=== PATIENT | male | born 2000 | race American Indian/Alaskan Native ===

== ENCOUNTER 2020-02-22 13:05 | Emergency (ER) | payer MEDICAID, OTHER ==
[2020-02-22 13:12] VITALS: BP 128/71
--- NOTE | 2020-02-22 14:05 | Emergency Department Report ---
ED Male HPI - General Chief complaint: Urogenital-Male Stated complaint: LEFT SWOLLEN TESTICLE Time Seen by Provider: 02/22/20 13:19 Source: patient Mode of arrival: Ambulatory Limitations: No Limitations - History of Present Illness Initial comments: 20-year-old [place] male with emergency department complaining of atraumatic left testicular swelling with a vague dull ache off and on which is been going on since waking up this morning. Reports no fevers chills or sweats reports no penile discharge. No dysuria no hematuria. MD Complaint: testicle swelling -: Gradual Location: left testicle Radiation: none Severity: mild Consistency: constant Improves with: none Worsens with: none new medication swelling. denies: rash, urinary retention, blood in urine, dysuria, fever, nausea/vomiting, incontinence - Related Data Allergies Allergy/AdvReac Type Severity Reaction Status Date / Time No Known Allergies Allergy Unverified 02/22/20 13:09 ED Review of Systems ROS: Stated complaint: LEFT SWOLLEN TESTICLE Other details as noted in HPI Comment: All other systems reviewed and negative ED Past Medical Hx - Past Medical History Previous Medical History?: No - Surgical History Past Surgical History?: Yes Additional Surgical History: orbital fx. surgery - Social History Smoking Status: Never Smoker Substance Use Type: None ED Physical Exam - General Limitations: No Limitations General appearance: alert, in no apparent distress - Head Head exam: Present: atraumatic, normocephalic - Eye Eye exam: Present: normal appearance - ENT ENT exam: Present: mucous membranes moist - Neck Neck exam: Present: normal inspection - Respiratory Respiratory exam: Present: normal lung sounds bilaterally. Absent: respiratory distress - Cardiovascular Cardiovascular Exam: Present: regular rate, normal rhythm. Absent: systolic murmur, diastolic murmur, rubs, gallop - GI/Abdominal GI/Abdominal exam: Present: soft, normal bowel sounds - Rectal Rectal exam: Present: deferred - exam: Present: testicular tenderness (Tenderness along the epididymis of the left testicle.), circumcision. Absent: urethral discharge, vertical testicular lie External exam: Present: normal external exam - Extremities Exam Extremities exam: Present: normal inspection - Back Exam Back exam: Present: normal inspection - Neurological Exam Neurological exam: Present: alert, oriented X3 - Psychiatric Psychiatric exam: Present: normal affect, normal mood - Skin Skin exam: Present: warm, dry, intact, normal color. Absent: rash ED Course Vital Signs 02/22/20 02/22/20 02/22/20 13:10 14:43 15:53 Temperature 98 F Pulse Rate 61 80 Respiratory 18 18 18 Rate Blood Pressure 128/71 O2 Sat by Pulse 100 99 100 Oximetry ED Medical Decision Making - Radiology Data Radiology results: report reviewed [facility] [address] [place] [address] Ultrasound Report Signed Patient: EDER FOUNTAIN MR#: [id number] : 2000 Acct:[id number] Age/Sex: 20 / M ADM Date: 02/22/20 Loc: ED Attending Dr: Ordering Physician: YADI MEYERS Date of Service: 02/22/20 Procedure(s): US testicular doppler comp Accession Number(s): [id number] cc: YADI MEYERS EXAMINATION: Testicular/scrotal ultrasound CLINICAL INFORMATION: Left testicular pain and swelling. COMPARISON: None. FINDINGS: Both testicles are normal in size and echogenicity. The right testicle measures 4.6 x 1.7 x 2.6 cm. The left testicle measures 3.6 x 1.8 x 2.7 cm. Symmetric Doppler flow is demonstrated to both testicles. There is a 5 mm cyst within the region of the left epididymis, likely representing an incidental finding. No hydrocele is identified. IMPRESSION: 1. No sonographic abnormality of either testicle. Signer Name: Taya Lal MD Signed: 02/22/2020 3:06 PM Workstation Name: [id number] Transcribed By: EB Dictated By: Taya Lal MD Electronically Authenticated By: Taya Lal MD Signed Date/Time: 02/22/20 1506 DD/ 1503 TD/TT: Critical care attestation.: If time is entered above; I have spent that time in minutes in the direct care of this critically ill patient, excluding procedure time. ED Disposition Clinical Impression: Epididymal cyst Disposition: DC-01 TO HOME OR SELFCARE Is pt being admited?: No Does the pt Need Aspirin: No Condition: Stable Instructions: Testicular Self-examination (ED) Additional Instructions: Take [id number] Tylenol or Motrin as needed for pain if issues arise. Return to emergency department should you develop should you develop fever, penile discharge, change in color to the testicle. Change and elevation to either of your testicles, severe pain or any other symptoms suggesting that your symptoms are worsening Referrals: [facility] [Provider Group] - 3-5 Days
[2020-02-22 14:25] LABS: Bilirubin,Urine NEG (Negative); Blood,Urine NEG (Negative); Color,Urine Yellow (Yellow); Mucus,Urine 3+ /HPF; Protein,Urine <15 mg/dL mg/dL (Negative); Urobilinogen,Urine < 2.0 mg/dL (<2.0)
--- NOTE | 2020-02-22 15:10 | Ultrasound Report ---
EXAMINATION: Testicular/scrotal ultrasound CLINICAL INFORMATION: Left testicular pain and swelling. COMPARISON: None. FINDINGS: Both testicles are normal in size and echogenicity. The right testicle measures 4.6 x 1.7 x 2.6 cm. T he left testicle measures 3.6 x 1.8 x 2.7 cm. Symmetric Doppler flow is demonstrated to both testicle s. There is a 5 mm cyst within the region of the left epididymis, likely representing an incidental find ing. No hydrocele is identified. IMPRESSION: 1. No sonographic abnormality of either testicle. Signer Name: Taya Lal MD Signed: 02/22/2020 3:06 PM Workstation Name: [id number]
== END 2020-02-22 15:53 | disposition home or self-care (01) ==
LOC: ED 13:05
DX: N50.3 Cyst of epididymis (principal)
CPT/HCPCS: 81001; 93975

== ENCOUNTER 2020-07-25 03:57 | Emergency (ER) | payer OTHER ==
[2020-07-25 05:00] LABS: Alanine Aminotransferase 28 units/L (7-56); Albumin 4.9 g/dL (3.9-5); BUN/Creatinine Ratio 7; Blood Urea Nitrogen 8 mg/dL (9-20); Calcium 9.9 mg/dL (8.4-10.2); Hemolysis Index 5
[2020-07-25 05:27] LABS: Basophils # (Auto) 0.1 K/mm3 (0.0-0.1); Basophils % (Auto) 1.5 % (0.0-1.8); Eosinophils # (Auto) 0.1 K/mm3 (0.0-0.4); Eosinophils % (Auto) 1.8 % (0.0-4.3); Hematocrit 42.5 % (35.5-45.6); Hemoglobin 14.8 gm/dl (11.8-15.2); Lymphocytes % (Auto) 21.5 % (13.4-35.0); Mean Corpuscular HGB Conc 35 % (32-34); Mean Corpuscular Volume 83 fl (84-94); Monocytes # (Auto) 0.4 K/mm3 (0.0-0.8); Monocytes % (Auto) 7.9 % (0.0-7.3); Platelet Count 328 K/mm3 (140-440); Red Blood Count 5.15 M/mm3 (3.65-5.03); Red Cell Distribution Width 14.2 % (13.2-15.2)
[2020-07-25 07:51] LABS: Bilirubin,Urine NEG (Negative); Blood,Urine NEG (Negative); Color,Urine Yellow (Yellow); Mucus,Urine 3+ /HPF
--- NOTE | 2020-07-25 08:30 | Emergency Department Report ---
ED Abdominal Pain HPI - General Chief Complaint: Abdominal Pain Stated Complaint: ABDOMINAL PAIN Time Seen by Provider: 07/25/20 08:13 Source: patient Mode of arrival: Ambulatory Limitations: No Limitations - History of Present Illness Initial Comments: Patient is a 20-year-old male presents emergency room with complaints of abdominal cramping that began this morning around 4 AM. He states that he had a small hard bowel movement around 4 AM. He states that he feels slightly constipated. He denies any nausea, vomiting, diarrhea, fever, hematochezia, hematemesis, melena. He does not report any urinary symptoms or pain or swelling in the testicles. He has no past medical history. No allergies to medications. He did not try anything for his symptoms. He states that he does need an excuse for work. - Related Data Previous Rx's Medication Instructions Recorded Last Taken Type Mag Hydrox/Aluminum Hyd/Simeth 10 ml PO QID PRN #1 bottle 07/25/20 Unknown Rx [Maalox Advanced Suspension] Polyethylene Glycol 3350 [Miralax] 7 gm PO DAILY PRN #1 powder 07/25/20 Unknown Rx Allergies Allergy/AdvReac Type Severity Reaction Status Date / Time No Known Allergies Allergy Unverified 02/22/20 13:09 ED Review of Systems ROS: Stated complaint: ABDOMINAL PAIN Other details as noted in HPI Comment: All other systems reviewed and negative ED Past Medical Hx - Past Medical History Previous Medical History?: No - Surgical History Past Surgical History?: Yes Additional Surgical History: orbital fx. surgery - Social History Smoking Status: Never Smoker Substance Use Type: None - Medications Home Medications: Home Medications Medication Instructions Recorded Confirmed Last Taken Type Mag Hydrox/Aluminum Hyd/Simeth 10 ml PO QID PRN #1 bottle 07/25/20 Unknown Rx [Maalox Advanced Suspension] Polyethylene Glycol 3350 [Miralax] 7 gm PO DAILY PRN #1 powder 07/25/20 Unknown Rx ED Physical Exam - General Limitations: No Limitations General appearance: alert, in no apparent distress - Head Head exam: Present: atraumatic, normocephalic - Eye Eye exam: Present: normal appearance - ENT ENT exam: Present: mucous membranes moist - Respiratory Respiratory exam: Present: normal lung sounds bilaterally. Absent: respiratory distress, wheezes, rales, rhonchi, stridor, chest wall tenderness, accessory muscle use, decreased breath sounds, prolonged expiratory - Cardiovascular Cardiovascular Exam: Present: regular rate, normal rhythm, normal heart sounds. Absent: systolic murmur, diastolic murmur, rubs, gallop - GI/Abdominal GI/Abdominal exam: Present: soft, normal bowel sounds, other (normal bowel sounds in all quadrants, negative murphys sign, no mcburneys point ttp, negative welch turners and cullens sign). Absent: distended, tenderness, guarding, rebound, rigid - Neurological Exam Neurological exam: Present: alert, oriented X3 - Psychiatric Psychiatric exam: Present: normal affect, normal mood - Skin Skin exam: Present: warm, dry, intact ED Course Vital Signs 07/25/20 04:11 Temperature 98.2 F Pulse Rate 67 Respiratory 18 Rate Blood Pressure 128/75 O2 Sat by Pulse 98 Oximetry ED Medical Decision Making - Lab Data Result diagrams: 07/25/20 04:23 07/25/20 04:23 - Medical Decision Making Patient is a 20-year-old male presents emergency room with complaints of abdominal cramping that began this morning around 4 AM. He states that he had a small hard bowel movement around 4 AM. He states that he feels slightly constipated. He denies any nausea, vomiting, diarrhea, fever, hematochezia, hematemesis, melena. He does not report any urinary symptoms or pain or swelling in the testicles. He has no past medical history. No allergies to medications. He did not try anything for his symptoms. He states that he does need an excuse for work. Vitals are normal. Patient is currently eating in exam room. On exam he has no abdominal tenderness palpation, no distention, no guarding, no rebound, no rigidity, no peritoneal signs, normal bowel sounds in all quadrants, negative murphys sign, no mcburneys point ttp, negative welch turners and cullens sign. labs and UA ordered prior to my examination and are WNL. Symptoms most likely related to constipation and gas pain. Patient is tolerating p.o. intake without difficulty. He has no obstructive signs. His vitals are normal, his labs are normal, no leukocytosis, his abdomen exam is benign. Patient given prescription for MiraLAX and Maalox. Advised patient to please take medication as prescribed. Increase your water intake. Eat a high-f iber diet. Follow-up with a primary care doctor in the next 2 days for reexamination. Return to emergency room for any new or worsening symptoms. Critical care attestation.: If time is entered above; I have spent that time in minutes in the direct care of this critically ill patient, excluding procedure time. ED Disposition Clinical Impression: Abdominal cramping Disposition: DC-01 TO HOME OR SELFCARE Is pt being admited?: No Does the pt Need Aspirin: No Condition: Stable Instructions: Constipation (ED), High Fiber Diet (ED), Gas and Bloating (ED) Additional Instructions: please take medication as prescribed. Increase your water intake. Eat a high- fiber diet. Follow-up with a primary care doctor in the next 2 days for reexamination. Return to emergency room for any new or worsening symptoms. Prescriptions: Mag Hydrox/Aluminum Hyd/Simeth [Maalox Advanced Suspension] 10 ml PO QID PRN #1 bottle PRN Reason: abdominal cramping Polyethylene Glycol 3350 [Miralax] 7 gm PO DAILY PRN #1 powder PRN Reason: constipation Referrals: JESUS CARRANZA MD [Primary Care Provider] - 2-3 Days GIOVANA VENTURA MD [Staff Physician] - 2-3 Days [facility] [Provider Group] - 2-3 Days Time of Disposition: 08:30 Print Language: SINHALA
[2020-07-25 09:36] VITALS: BP 105/53
== END 2020-07-25 09:02 | disposition home or self-care (01) ==
LOC: ED 03:57
DX: R10.9 Unspecified abdominal pain (principal); Z79.899 Other long term (current) drug therapy; Z98.890 Other specified postprocedural states
CPT/HCPCS: 36415; 80053; 81001; 85025